=== PATIENT | male | born 2000 | race Caucasian/White ===

== ENCOUNTER 2018-09-15 12:52 | Emergency (ER) | payer OTHER ==
[~2018-09-15] VITALS: Ht 177.8 cm; Wt 60.9 kg
[2018-09-15 13:55] LABS: BASOPHILS # (AUTO) 0.03 x10^3/uL (0-0.3); BASOPHILS % (AUTO) 1 % (0-1); EOSINOPHILS # (AUTO) 0.08 x10^3/uL (0-0.8); EOSINOPHILS % (AUTO) 1 % (1-7); LYMPHOCYTES # (AUTO) 1.04 x10^3/uL (1-6.1); LYMPHOCYTES % (AUTO) 18 % (22-44); MD NO; MEAN CORPUSCULAR HEMOGLOBIN 30.4 pg (27.5-34.5); MEAN CORPUSCULAR HGB CONC 33.6 g/dL (33.2-36.2); MEAN CORPUSCULAR VOLUME 90.4 fL (81-97); MEAN PLATELET VOLUME 8.2 fL (7.4-10.4); MONOCYTES % (AUTO) 7 % (2-9); NEUTROPHILS # (AUTO) 4.21 x10^3/uL (1.8-8.0); NEUTROPHILS % (AUTO) 73 % (42-75); PLATELET COUNT 338 x10^3/uL (130-400); RED BLOOD COUNT 4.96 x10^6/uL (4.38-5.82); RED CELL DISTRIBUTION WIDTH 13.5 % (9.4-14.8)
[2018-09-15 13:58] LABS: ALBUMIN 3.9 g/dL (3.4-5.0); ANION GAP 3 mmol/L (5-15); CALCIUM 9.1 mg/dL (8.5-10.1); CHLORIDE 110 mmol/L (98-107); CREATININE 1.01 mg/dL (0.7-1.3)
--- NOTE | 2018-09-15 14:23 | NUR ---
Patient ambulates to room from triage at this time, does not appear to be in acute distress.
--- NOTE | 2018-09-15 14:25 | NUR ---
PT STATES HE FELT LIKE HE WAS GOING TO PASS OUT AND SAT DOWN WHEN HE FELT IT COMING ON. HAS EXPERIENCED THIS BEFORE
--- NOTE | 2018-09-15 15:21 | NUR ---
MD AT BEDSIDE TALKING WITH PT ABOUT DISCHARGE. MD PROVIDED PT WITH A RHYTHM STRIP SHOWING A SLOW DOWN OF HR AND PT INSTRUCTED TO BRING IT TO [facility]. PT ADDITIONALLY ENCOURAGED TO RETURN TO ER AT ANY TIME IF SYMPTOMS PERSIST BEFORE FOLLOWUP APPOINTMENT. PT AMBULATED TO DISCHARGE WINDOW STEADY GAIT
[2018-09-15 15:23] VITALS: BP 94/54
== END 2018-09-15 15:30 | disposition home or self-care (01) ==
LOC: ED 15:20
DX: R55 Syncope and collapse (principal); R00.1 Bradycardia, unspecified
CPT/HCPCS: 36415; 71045; 80048; 82040; 85025; 93005; 99284